=== PATIENT | male | born 1965 | race American Indian/Alaskan Native ===

== ENCOUNTER 2022-01-04 13:40 | Emergency (ER) | payer SELFPAY ==
--- NOTE | 2022-01-04 15:39 | Emergency Department Report ---
HPI - General Chief Complaint: Urogenital-Male PUI?: No Time Seen by Provider: 01/04/22 14:35 - HPI HPI: 56-year-old male with self-reported history of prior bowel obstruction status post bowel resection (patient states this is approximately 7 years ago while living in [place]), prior history of syphilis, presents for evaluation of right- sided testicular pain x3 days. Patient states his symptoms started when he was hospitalized at [facility] several days ago. He states he informed the medical provider at that time of his pain but he was set for discharge and the issues not further addressed. He states that he has been sexually active with multiple female partners over the past few weeks and and does endorse using barrier contraception in the form of condoms. He states the pain is constant throbbing and worsens with touch and ambulation. It is alleviated by scrotal rest. He denies any penile lesions or discharge. He is ascribes to having burning and pain with urination. Patient also states that this morning he saw blood in his urine. He denies any nausea vomiting fever chills, abdominal pain or back or flank pain. Denies any recent procedures. Pain currently 6 out of 10. Of note patient states he is COVID-positive. He states that he tested positive on Wednesday, December 30, 2021. He has not taken a repeat test per his report. ED Past Medical Hx - Past Medical History Previous Medical History?: Yes Hx Hypertension: Yes - Surgical History Past Surgical History?: Yes Additional Surgical History: The patient reports history of bowel obstruction and had partial colectomy performed approximately 7 years ago while in [place] - Social History Smoking Status: Never Smoker Substance Use Type: None - Medications Home Medications: Home Medications Medication Instructions Recorded Confirmed Last Taken Type Ibuprofen [Motrin 800 MG tab] 800 mg PO Q8HR PRN 7 Days #21 01/04/22 Unknown Rx tablet levoFLOXacin [Levaquin TAB] 500 mg PO QDAY 10 Days #10 tablet 01/04/22 Unknown Rx ED Review of Systems ROS: Stated complaint: BLOOD IN URINE Other details as noted in HPI Comment: All other systems reviewed and negative Constitutional: no symptoms reported Respiratory: no symptoms reported Cardiovascular: as per HPI. denies: chest pain, palpitations, dyspnea on e xertion, orthopnea, edema, syncope, paroxysmal nocturnal dyspnea, other Endocrine: denies: see HPI, excessive sweating, flushing, intolerance to cold, intolerance to heat, increased hunger, increased thirst, increased urine, unexplained weight gain, unexplained weight loss Gastrointestinal: as per HPI. denies: abdominal pain, nausea, vomiting, imelda rrhea, constipation, hematemesis, melena, hematochezia Genitourinary: as per HPI, dysuria, testicular pain. denies: frequency, hematuria, discharge, testicular mass, other Musculoskeletal: as per HPI. denies: back pain, joint swelling, arthralgia, myalgia, other Skin: as per HPI. denies: rash, lesions, change in color, change in hair/nails, pruritus Neurological: denies: headache, weakness, numbness, paresthesias, confusion, abnormal gait, vertigo, other Psychiatric: denies: anxiety, depression, auditory hallucinations, visual hallucinations, homicidal thoughts Hematological/Lymphatic: denies: easy bleeding, easy bruising, swollen glands Physical Exam - Physical Exam Vital Signs: Vital Signs 01/04/22 01/04/22 13:56 15:32 Temperature 98.4 F Pulse Rate 51 L Respiratory 20 17 Rate Blood Pressure 118/74 [Left] O2 Sat by Pulse 96 97 Oximetry General: Gen: pt is well appearing, no acute distress HEENT: Normocephalic atraumatic pupils equally round and reactive to light extraocular muscles intact sclera anicteric Neck: Full range of motion, no midline spinal tenderness palpation, no JVD, no carotid bruits, no nuchal rigidity CVS: S1-S2 regular rate and rhythm with no gallops rubs or murmurs, chest wall nontender Pulmonary: Clear to auscultation bilaterally, no wheezes rales or rhonchi Abdomen: Soft nondistended nontender no guarding or rebound tenderness, no palpable deformities or step-offs, normal active bowel sounds, no hepatosplenomegaly, no pulsatile masses : HORSE BREEDER: PHILLIP YATES; pt has scrotal enlargement b/l w/o edema; moderate ttp of R scrotum and epididmyis; no penile lesions or discharge; no active bleeding emanating from penile urethral meatus; no palpable inguinal lymphadenopathy, no crepitus or erythema to perineum suggestive or concerning for Rodrick's gangrene Extremities: No cyanosis no clubbing no edema, intact distal peripheral pulses, Integumentary: Skin normal, no petechia no purpura no abscess no lacerations no evidence of trauma no evidence of infection Neuro: Patient is awake alert and oriented to person place time situation, mentating well, cranial nerves II through XII intact, no focal neurodeficits, sensation grossly tact Psych: Calm cooperative, mood affect normal ED Course Vital Signs 01/04/22 01/04/22 13:56 15:32 Temperature 98.4 F Pulse Rate 51 L Respiratory 20 17 Rate Blood Pressure 118/74 [Left] O2 Sat by Pulse 96 97 Oximetry - Reevaluation(s) Reevaluation #1: 01/04/22 18:51 pt is comfortable and well appearing; received rocephine 500mg IM; his airway is patent and intact; he denies any difficulty breathing shortness of breath throat tightness itching or rashes. Vitals are normal. We will continue to monitor and reassess. ED Medical Decision Making - Lab Data Result diagrams: 01/04/22 16:02 01/04/22 16:02 - Radiology Data Radiology results: report reviewed - Medical Decision Making 56-year-old male, who reports he is actively COVID-positive, presents for evaluation of right scrotal pain and burning and pain with urination x3 to 4 days. Vital signs stable. He denies any cardiopulmonary or intra-abdominal or neurological symptoms. Serum labs demonstrate significant pyuria. Testicular or scrotal ultrasound performed and results reviewed. Patient for broad- spectrum antibiotic coverage for possible gonorrhea chlamydia exposure, was given ceftriaxone and doxycycline he tolerated these antibiotics without difficulty. CT abdomen pelvis without contrast performed to rule out concomitant obstructing nephrolithiasis given his complaints of hematuria. CT scan demonstrates no acute pathology. Patient overall is extremely well-appearing. He will be discharged with outpatient antibiotics in the form of Levaquin 500 mg by mouth daily x10 days for treatment of epididymitis and orchitis. Patient educated concerning safe sexual practices. All questions answered by me at the patient's bedside. Patient stable for discharge to home. Prior to discharge she was given strict verbal and written return precautions. He verbalized understanding and agreement with plan of care. Critical care attestation.: If time is entered above; I have spent that time in minutes in the direct care of this critically ill patient, excluding procedure time. ED Disposition Clinical Impression: Epididymitis, right, Orchitis and epididymitis Disposition: HOME / SELF CARE / HOMELESS Is pt being admited?: No Does the pt Need Aspirin: No Condition: Stable Instructions: Orchitis, Epididymitis, Epididymitis (ED) Additional Instructions: It is strongly advised that you abstain from penile intercourse for at least 10- 14 days, while you are on antibiotics. You have been prescribed antibiotics to treat an infection of your testicle and epididymis known as orchitis and epididymitis. Please take Levaquin, 500 mg by mouth, once a day for the next 10 days. Be sure to complete the entire prescription. Take ibuprofen 800 mg by mouth every 8 hours as needed for pain. If in between your dosages of ibuprofen you still have pain, it is advised that you take acetaminophen, 650 mg. Acetaminophen may be taken every 6 hours as well. Observe your symptoms very carefully. Return to the nearest emergency department soon as possible if you develop severe or worsening pain to your scrotum or genital region, spreading redness, any fever of 100.4 Fahrenheit or higher, vomiting, inability tolerate liquids or solids, or if any other new worrisome symptoms develop Prescriptions: levoFLOXacin [Levaquin TAB] 500 mg PO QDAY 10 Days #10 tablet Ibuprofen [Motrin 800 MG tab] 800 mg PO Q8HR PRN 7 Days #21 tablet PRN Reason: Pain, Moderate (4-6) Referrals: PRIMARY CARE, [Primary Care Provider] - 3-5 Days Forms: STI Treatment and Prevention
[2022-01-04 16:18] LABS: Bilirubin,Urine NEG (Negative); Blood,Urine NEG (Negative); Color,Urine Yellow (Yellow)
[2022-01-04 16:24] LABS: Mucus,Urine FEW /HPF
[2022-01-04] MEDS ORDERED: LORazepam 2 MG/ML VIAL IV ONE (17:07)
[2022-01-04 17:08] LABS: Basophils % (Auto) 0.3 % (0.0-1.8); Eosinophils # (Auto) 0.2 K/mm3 (0.0-0.4); Eosinophils % (Auto) 2.9 % (0.0-4.3); Hematocrit 42.2 % (35.5-45.6); Hemoglobin 14.2 gm/dl (11.8-15.2); Lymphocytes # (Auto) 1.4 K/mm3 (1.2-5.4); Lymphocytes % (Auto) 20.1 % (13.4-35.0); Mean Corpuscular HGB Conc 34 % (32-34); Mean Corpuscular Volume 98 fl (84-94); Monocytes # (Auto) 0.7 K/mm3 (0.0-0.8); Platelet Count 179 K/mm3 (140-440); Red Blood Count 4.31 M/mm3 (3.65-5.03); Red Cell Distribution Width 13.3 % (13.2-15.2)
[2022-01-04 17:16] LABS: BUN/Creatinine Ratio 10; Blood Urea Nitrogen 10 mg/dL (9-20); Calcium 9.2 mg/dL (8.4-10.2); Hemolysis Index 6
[2022-01-04 17:21] LABS: INR 0.84 (0.87-1.13)
[2022-01-04 17:22] LABS: Partial Thromboplastin Time 37.7 Sec. (24.2-36.6)
[2022-01-04] MEDS ORDERED: ROCURONIUM 50 MG/5 ML INJ IV ONE (17:56)
[2022-01-04] MEDS ORDERED: ETOMIDATE 20 MG/10 ML INJ IV ONE (17:56)
[2022-01-04] MEDS ORDERED: KETOROLAC 30 MG/1 ML INJ IV ONE (18:20)
[2022-01-04] MEDS ORDERED: DOXYCYCLINE 100 MG CAP PO ONE (18:21)
[2022-01-04] MEDS ORDERED: LIDOCAINE-MPF (1%) 10 MG/1 ML VIAL 5 ML INFILTRATI ONE (18:21)
--- NOTE | 2022-01-04 18:23 | Ultrasound Report ---
ULTRASOUND SCROTUM INDICATION / CLINICAL INFORMATION: R scrotal pain ; r/o torsion. COMPARISON: None available. FINDINGS -- RIGHT: TESTIS: Size = 3.8 x 2.0 x 3.5 cm. - Appearance: No significant abnormality. - Cyst / Mass: None. - Color Doppler Flow: Mild generalized increased vascularity. EPIDIDYMIS: Mild generalized increased vascularity. HYDROCELE: None. VARICOCELE: None demonstrated. FINDINGS -- LEFT: TESTIS: Size = 4.1 x 2.7 x 3.7 cm. - Appearance: No significant abnormality. - Cyst / Mass: None. - Color Doppler Flow: No significant abnormality. EPIDIDYMIS: No significant abnormality. HYDROCELE: None. VARICOCELE: None demonstrated. ADDITIONAL FINDINGS: None. IMPRESSION: 1. Mild increased vascularity of the right testicle and epididymis compared to the left is probably r elated to epididymo-orchitis. 2. No evidence of testicular mass or torsion. Signer Name: Jamaal Cruz MD Signed: 01/04/2022 6:18 PM Workstation Name: [id number]
--- NOTE | 2022-01-04 19:30 | Cat Scan Report ---
CT ABDOMEN AND PELVIS WITHOUT CONTRAST INDICATION: b/l flank pain, hematuria; r/o obstruct kid stone. TECHNIQUE: Axial CT images were obtained through the abdomen and pelvis without IV contrast. All CT scans at [facility] location are performed using CT dose reduction for ALARA by means of automated exposure control. COMPARISON: None available. FINDINGS: LOWER CHEST: No significant abnormality. LIVER: No significant abnormality. GALLBLADDER: No significant abnormality. BILE DUCTS: No significant abnormality. PANCREAS: No significant abnormality. SPLEEN: No significant abnormality. ADRENALS: No significant abnormality. RIGHT KIDNEY and URETER: No significant abnormality. LEFT KIDNEY and URETER: 2 tiny punctate 1 to 2 mm intrarenal stones. STOMACH and SMALL BOWEL: No significant abnormality. COLON: Postsurgical change from right hemicolectomy APPENDIX: No significant abnormality. PERITONEUM: No free fluid. No free air. No fluid collection. LYMPH NODES: No significant adenopathy. AORTA and ARTERIES: No significant abnormality. IVC and VEINS: No significant abnormality. URINARY BLADDER: No significant abnormality. REPRODUCTIVE ORGANS: No significant abnormality. ADDITIONAL FINDINGS: None. SKELETAL SYSTEM: No significant abnormality. IMPRESSION: 1. Left nephrolithiasis. No ureteral stone or hydronephrosis Signer Name: Shamar Banks MD Signed: 01/04/2022 7:25 PM Workstation Name: [id number]
[2022-01-04 21:48] VITALS: BP 124/87
== END 2022-01-04 19:15 | disposition home or self-care (01) ==
LOC: ED 13:40
DX: N45.1 Epididymitis (principal); N45.2 Orchitis; I10 Essential (primary) hypertension
CPT/HCPCS: 36415; 74176; 80048; 81001; 85025; 85610; 85730; 93975; 96372; 96374; 96375; 99284; J0696; J1885; J3490; 76870

== ENCOUNTER 2022-01-08 08:12 | Emergency (ER) | payer SELFPAY ==
[2022-01-08] MEDS ORDERED: ONDANSETRON 4 MG/2 ML INJ IV ONE (10:25)
[2022-01-08] MEDS ORDERED: MORPHINE 4 MG/1 ML INJ IV ONE (10:25)
[2022-01-08] MEDS ORDERED: SODIUM CHLORIDE 0.9% 1000 ML 1,000 ML IV ONE (10:25)
--- NOTE | 2022-01-08 10:30 | Emergency Department Report ---
ED Male HPI - General Chief complaint: Urogenital-Male Stated complaint: GROIN PAIN Source: EMS Mode of arrival: Ambulatory Limitations: No Limitations - History of Present Illness Initial comments: 56-year-old male with history of epididymitis, kidney stones presents with right testicular pain and groin pain which has been going on since Wednesday. Patient reports symptoms began immediately after he got some IV contrast dye while he was hospitalized for COVID. Describes pain as sharp and radiates to his right testicles and his right leg. Pain is sharp, intermittent. He denies dysuria however when he went to void this morning he noticed there was blood in his urine no fever chills no nausea or vomiting, no back pain, MD Complaint: testicle pain, testicle swelling, groin pain -: Gradual Location: right testicle Severity: moderate - Related Data Previous Rx's Medication Instructions Recorded Last Taken Type Ibuprofen [Motrin 800 MG tab] 800 mg PO Q8HR PRN 7 Days #21 01/08/22 Unknown Rx tablet levoFLOXacin [Levaquin TAB] 500 mg PO QDAY 10 Days #10 tablet 01/08/22 Unknown Rx Allergies Allergy/AdvReac Type Severity Reaction Status Date / Time Penicillins AdvReac Unknown Verified 01/08/22 08:21 ED Review of Systems ROS: Stated complaint: GROIN PAIN Other details as noted in HPI Constitutional: no symptoms reported Respiratory: no symptoms reported Cardiovascular: as per HPI Endocrine: no symptoms reported Gastrointestinal: abdominal pain. denies: nausea, vomiting, diarrhea, constipation, hematemesis, melena Genitourinary: urgency, dysuria Skin: as per HPI, rash Neurological: denies: as per HPI, headache Psychiatric: denies: anxiety, depression ED Past Medical Hx - Past Medical History Previous Medical History?: Yes Hx Hypertension: Yes - Surgical History Past Surgical History?: No Hx Coronary Stent: No Additional Surgical History: The patient reports history of bowel obstruction and had partial colectomy performed approximately 7 years ago while in [place] - Social History Smoking Status: Never Smoker Substance Use Type: None - Medications Home Medications: Home Medications Medication Instructions Recorded Confirmed Last Taken Type Ibuprofen [Motrin 800 MG tab] 800 mg PO Q8HR PRN 7 Days #21 01/08/22 Unknown Rx tablet levoFLOXacin [Levaquin TAB] 500 mg PO QDAY 10 Days #10 tablet 01/08/22 Unknown Rx ED Physical Exam - General Limitations: No Limitations General appearance: alert, in no apparent distress - Eye Eye exam: Present: normal appearance Pupils: Present: normal accommodation - ENT ENT exam: Present: normal exam - Neck Neck exam: Absent: normal inspection - Respiratory Respiratory exam: Present: normal lung sounds bilaterally. Absent: respiratory distress - Cardiovascular Cardiovascular Exam: Present: regular rate, normal rhythm - GI/Abdominal GI/Abdominal exam: Present: soft. Absent: distended - exam: Present: testicular tenderness, scrotal swelling (Right). Absent: normal inspection, urethral discharge External exam: Absent: normal external exam - Extremities Exam Extremities exam: Present: normal inspection, full ROM, normal capillary refill. Absent: tenderness, pedal edema - Back Exam Back exam: Present: normal inspection, full ROM - Neurological Exam Neurological exam: Present: alert, oriented X3, CN II-XII intact, normal gait - Psychiatric Psychiatric exam: Present: normal affect, normal mood - Skin Skin exam: Present: dry ED Course Vital Signs 01/08/22 08:17 Temperature 99.0 F Pulse Rate 55 L Respiratory 16 Rate Blood Pressure 130/90 [Left] O2 Sat by Pulse 98 Oximetry ED Medical Decision Making - Lab Data Result diagrams: 01/08/22 11:11 01/08/22 11:11 - Radiology Data Radiology results: report reviewed - Medical Decision Making 56-year-old male with history of epididymitis presenting to the emergency department with right testicular pain and swelling as well as hematuria. His labs are reassuring, ultrasound negative for torsion, positive for epididymitis with some orchitis, some patient's symptoms and complaints will treat with some antibiotics. She has patient is also sexually active, given a shot of ceftriaxone, also provided urology referral which have encouraged him to make sure he is following up. Plan is to discharge with levofloxacin, scrotal bag, NSAIDs for pain management, rest, and follow-up. Discussed all of this with patient including return precautions. Patient verbalizes understanding of everything discussed and will follow up as instructed. Critical care attestation.: If time is entered above; I have spent that time in minutes in the direct care o f this critically ill patient, excluding procedure time. ED Disposition Clinical Impression: Epididymitis, right, Orchitis and epididymitis, Hydrocele Disposition: HOME / SELF CARE / HOMELESS Is pt being admited?: No Does the pt Need Aspirin: No Condition: Stable Instructions: Epididymitis (ED), Hydrocele, Adult, Epididymitis Additional Instructions: scrotal socks Prescriptions: levoFLOXacin [Levaquin TAB] 500 mg PO QDAY 10 Days #10 tablet Ibuprofen [Motrin 800 MG tab] 800 mg PO Q8HR PRN 7 Days #21 tablet PRN Reason: Pain, Moderate (4-6) Referrals: PRIMARY CARE, [Primary Care Provider] - 3-5 Days DOLORES ROBB MD [Staff Physician] - 3-5 Days Forms: STI Treatment and Prevention
[2022-01-08 11:39] LABS: Bilirubin,Urine Negative (Negative); Blood,Urine Trace (Negative); Color,Urine Yellow (Yellow); Urobilinogen,Urine < 2.0 mg/dL (<2.0)
[2022-01-08 12:42] LABS: Basophils % (Auto) 0.6 % (0.0-1.8); Eosinophils # (Auto) 0.1 K/mm3 (0.0-0.4); Eosinophils % (Auto) 2.2 % (0.0-4.3); Hemoglobin 16.1 gm/dl (11.8-15.2); Lymphocytes # (Auto) 1.1 K/mm3 (1.2-5.4); Lymphocytes % (Auto) 23.7 % (13.4-35.0); Mean Corpuscular HGB Conc 33 % (32-34); Mean Corpuscular Volume 98 fl (84-94); Monocytes # (Auto) 0.4 K/mm3 (0.0-0.8); Monocytes % (Auto) 7.7 % (0.0-7.3); Platelet Count 211 K/mm3 (140-440); Red Blood Count 5.02 M/mm3 (3.65-5.03); Red Cell Distribution Width 13.2 % (13.2-15.2)
[2022-01-08 12:57] LABS: Alanine Aminotransferase 28 units/L (7-56); BUN/Creatinine Ratio 13; Blood Urea Nitrogen 13 mg/dL (9-20); Calcium 9.6 mg/dL (8.4-10.2); Hemolysis Index 20
--- NOTE | 2022-01-08 13:38 | Ultrasound Report ---
ULTRASOUND SCROTUM INDICATION / CLINICAL INFORMATION: right testicular pain, swelling. COMPARISON: CT abdomen pelvis 01/04/2022. Testicular ultrasound from 01/04/2022. FINDINGS -- RIGHT: TESTIS: Size = 3.9 x 3.3 x 2.3 cm. - Appearance: No significant abnormality. - Cyst / Mass: None. - Color Doppler Flow: No significant abnormality. EPIDIDYMIS: Small 7 mm epididymal head cyst. Enlargement and hypervascularity of the epididymal body and tail. HYDROCELE: Interval development of a moderate volume right hydrocele with low-level internal echoes. VARICOCELE: None demonstrated. FINDINGS -- LEFT: TESTIS: Size = 4.6 x 3.4 x 2.2 cm. - Appearance: No significant abnormality. - Cyst / Mass: None. - Color Doppler Flow: No significant abnormality. EPIDIDYMIS: No significant abnormality. HYDROCELE: None. VARICOCELE: None demonstrated. ADDITIONAL FINDINGS: None. IMPRESSION: 1. Persistent features of right epididymitis with enlargement and hypervascularity involving the epid idymal body and tail. 2. Interval development of a mildly complex, presumably reactive, right-sided hydrocele. Signer Name: Jamaal Wick MD Signed: 01/08/2022 1:34 PM Workstation Name: [id number]
[2022-01-08] MEDS ORDERED: LIDOCAINE-MPF (1%) 10 MG/1 ML VIAL 5 ML INFILTRATI ONE (14:27)
[2022-01-08 15:22] VITALS: BP 138/73
== END 2022-01-08 15:21 | disposition home or self-care (01) ==
LOC: ED 08:12
DX: N45.1 Epididymitis (principal); N45.2 Orchitis; N43.3 Hydrocele, unspecified; I10 Essential (primary) hypertension; Z88.0 Allergy status to penicillin
CPT/HCPCS: 36415; 80053; 81001; 83690; 85025; 93975; 96361; 96372; 96374; 96375; 99284; J0696; J2270; J2405; J3490; J7030